=== PATIENT | female | born 1995 | race Hispanic/Latino ===

== ENCOUNTER 2019-06-15 01:13 | Day surgery (SDC) | payer OTHER ==
[2019-06-15 01:47] VITALS: BMI 27.0
[2019-06-15 02:30] LABS: Bacteria/HPF None Seen HPF (None Seen); Bilirubin Negative (Negative); Blood, Urine 1+ (Negative); Clarity Clear (Clear); Glucose, Urine (Dipstick) Normal (Negative); Leukocyte 25 Leu/uL (Negative); Nitrite Negative (Negative); Protein, Urine (Dipstick) Negative (Neg-Trace); RBC/HPF 0-3 HPF (0-3); Squamous Epithelial 0-3 HPF (0-3); Urobilinogen Normal mg/dL (Less than 2); WBC/HPF 0-3 HPF (0-3)
[2019-06-15] MEDS ORDERED: Ondansetron ODT 8 MG TAB SL PRN (03:27)
[2019-06-15] MEDS ORDERED: Lactated Ringer's 1,000 ML IV SCH (03:30)
[2019-06-15] MEDS ORDERED: Morphine 4 MG/ML VIAL SLOW IVP SCH (03:30)
[2019-06-15] MEDS: Morphine 4 MG/ML VIAL SLOW IVP SCH ×2 (04:05→05:02)
[2019-06-15] MEDS ORDERED: Morphine 4 MG/ML VIAL ONE (05:01)
[2019-06-15] MEDS ORDERED: FLU VACC QS2019-20(6MOS UP)/PF 60 MCG/0.5 ML SYRINGE IM ONE (09:00)
[2019-06-16] MEDS ORDERED: hydrALAZINE 20 MG/ML VIAL SLOW IVP PRN (09:48)
--- NOTE | 2019-06-16 10:12 | PRG ---
DATE OF SERVICE: 06/15/2019 PRIMARY OB: Lisa Zambrano MD CHIEF COMPLAINT: Abdominal pain. HISTORY OF PRESENT ILLNESS: The patient is a 23-year-old G1, P0, female with an intrauterine at 38 weeks and 6 days, who presents to Labor and Delivery with a several day history of back pain and abdominal contractions. The patient also reports that she has burning at the conclusion of urination for a couple of days. The patient denies leakage of fluid. Denies vaginal bleeding. Denies any recent illnesses, fever, fall, headache, chest pain, or shortness of breath. The patient has had some nausea. Denies vomiting. Reports constipation with her last bowel movement several days ago. Denies any new rashes, hip problems, knee problems, muscle weakness. She does report lower back pain. This has been present for a while now. PAST MEDICAL HISTORY: Negative. PAST SURGICAL HISTORY: Negative. ALLERGIES: NO KNOWN DRUG ALLERGIES. MEDICATIONS: vitamins. SOCIAL HISTORY: Denies drug, alcohol, or tobacco use. OB LABS: One-hour glucose 72. Hepatitis B surface antigen is nonreactive. HIV is nonreactive in the first trimester. Rubella is immune. GBS positive. RPR negative. Type and screen, blood type is a positive, antibody screen is negative. REVIEW OF SYSTEMS: Per HPI. PHYSICAL EXAMINATION: VITAL SIGNS: Blood pressure is 134/75, heart rate of 71, respiratory rate of 16, saturating 99% on room air, and temperature 98.1. GENERAL: She appears to be in no acute distress. She is alert and oriented, cooperative and pleasant to interact with. HEENT: Head is normocephalic, atraumatic. LUNGS: Clear to auscultation bilaterally. HEART: Has a regular rate and rhythm. ABDOMEN: Gravid. She has some tenderness with deviation of the uterus to the left and right. She has some SI joint tenderness. Cervix is 1, 80, and -1 station per nursing staff. DIAGNOSTIC DATA: heart tracing shows a baseline in the 120s with moderate long-term variability, positive 15 x 15 accelerations, no decelerations. Labs; urinalysis; ketones are negative, 1+ blood, 0 to 3 red blood cells, 25 leukocyte esterase, no bacteria, no squamous cells, no nitrite. ASSESSMENT AND PLAN: The patient is a 23-year-old female, having more musculoskeletal pains of and likely some uterine contractions, but no evidence of labor. The patient has been given 6 mg of morphine IV and a liter of fluid in an attempt to give her some comfort. The patient is being discharged home, more comfortable when she came and has been instructed to follow up with her primary OB. Fetus is category I tracing and reactive NST. The patient has been given term labor precautions. Job ID: [id number]
== END 2019-06-15 05:50 | disposition home or self-care (01) ==
LOC: L&D/OP 01:13
PROVIDERS: ATTEND Family Medicine
DX: O47.1 False labor at or after 37 completed weeks of gestation (principal); Z3A.38 38 weeks gestation of pregnancy
CPT/HCPCS: 81001; 96360; 96361; 96375; 99284; J2270

== ENCOUNTER 2019-06-16 07:29 | Inpatient (IN) | payer OTHER ==
[2019-06-16 08:03] VITALS: BMI 27.0
[2019-06-16] MEDS ORDERED: hydrALAZINE 20 MG/ML VIAL SLOW IVP PRN ×2 (08:51→14:16)
[2019-06-16] MEDS ORDERED: Glycerin Adult Supp. (12 ct jar) PR SCH (09:00)
[2019-06-16] MEDS ORDERED: Bupivacaine/Epinephrine 0.25% 30 ML VIAL ONE (09:30)
[2019-06-16] MEDS ORDERED: Ondansetron ODT 8 MG TAB SL PRN (10:18)
[2019-06-16] MEDS ORDERED: Morphine 4 MG/ML VIAL IM SCH (10:30)
[2019-06-16] MEDS ORDERED: Fleet Enema 133 ML BOT PR SCH (10:30)
[2019-06-16] MEDS ORDERED: Mineral Oil ENEMA PR SCH (11:30)
--- NOTE | 2019-06-16 14:12 | PRG ---
DATE OF SERVICE: 06/16/2019 PRIMARY OB: Dr. Lisa Zambrano. CHIEF COMPLAINT: Abdominal pain. HISTORY OF PRESENT ILLNESS: The patient is a 23-year-old primip, presenting to Labor and Delivery at 39 weeks' gestation with continued abdominal pain and back pain. The patient reports that she has been experiencing this back and pubic bone pain for several days now. She was seen yesterday in the office with Dr. Zambrano, who said she was 2 cm dilated at that time. The patient was discharged home with Keflex for urinary tract infection and Tylenol No. 3 for pain control. She has re-presented today with persistent pain that Tylenol No. 3 has not been helping with. She reports that she is having abdominal pains and uterine contractions of unknown duration or frequency. The patient denies vaginal bleeding or leakage of fluid. She denies any fever, fall, headache, chest pain, or shortness of breath. She has had nausea. Denies vomiting. Reports constipation and has not had a bowel movement for the last 5 days. Denies any new rashes, hip problems, knee problems, or muscle weakness. Denies vaginal bleeding or leakage of fluid. Denies urinary urgency or frequency. PAST MEDICAL HISTORY: Negative. PAST SURGICAL HISTORY: She has had ear tubes placed as a child. ALLERGIES: NO KNOWN DRUG ALLERGIES. MEDICATIONS: 1. vitamins. 2. Keflex. 3. Tylenol No. 3. SOCIAL HISTORY: Denies drug, alcohol, or tobacco use. OB LABS: Blood type is A positive. Antibody screen is negative. She is rubella immune. GBS positive. RPR negative in the first trimester. Hepatitis B surface antigen negative in the first trimester. HIV negative in the first trimester. One-hour Glucola 72. GC and chlamydia are negative. REVIEW OF SYSTEMS: Per HPI. PHYSICAL EXAMINATION: VITAL SIGNS: Blood pressure is 122/74, heart rate of 88, respiratory rate of 18, and temperature 98.3. GENERAL: She appears to be in some distress. She is alert, oriented, cooperative, and pleasant to interact with. HEAD: Normocephalic and atraumatic. LUNGS: Clear to auscultation bilaterally. HEART: Has regular rate and rhythm. ABDOMEN: Gravid and soft. Most of her pain is coming from her left-sided SI joint pain and her back. She does feel hardness in her belly when she does have a contraction, but it is not causing most of her pain. CERVICAL: 2, 75, and -2 station. heart tracing shows fetus with a baseline in the 130s with moderate long-term variability, positive 15 x 15 accelerations, no decelerations. Tocometer showing irritability with contractions about every 10 minutes. ASSESSMENT AND PLAN: The patient is a 23-year-old female with an intrauterine at 39 weeks and 0 days, having significant musculoskeletal pains of and possibly late in labor as she has had some cervical change since her last visit here a little over 24 hours ago. The patient has also been constipated without a bowel movement last 5 days. We will be giving her a suppository and enema if necessary to help assist with that to see if that will give her any relief. The patient is also getting IV hydration and has been offered pain medication when she would like it. Fetus has a category I tracing and reactive NST. It will be re-evaluated in a couple of hours to assess for active labor and we will be notifying Dr. Zabmrano at that time with our findings. Job ID: [id number]
[2019-06-16] MEDS ORDERED: Ondansetron PF 4 MG/2 ML Vial IVP PRN ×2 (14:16→22:30)
[2019-06-16] MEDS ORDERED: Lidocaine 1% (PF) 30 ML VIAL SC PRN (14:16)
[2019-06-16] MEDS ORDERED: Ibuprofen 800 MG TAB PO PRN (14:16)
[2019-06-16] MEDS ORDERED: Butorphanol Tartrate 1 MG/ML VIAL SLOW IVP PRN (14:16)
[2019-06-16] MEDS ORDERED: NS w/ Oxytocin 10 units 500 ML IV SCH (14:30)
[2019-06-16] MEDS ORDERED: Lactated Ringer's 1,000 ML IV SCH (14:30)
[2019-06-16] MEDS ORDERED: Penicillin G Potassium 5 MILL.UNITS in Sodium Chloride 0.9% 100 ML IVPB SCH (14:45)
[2019-06-16 15:48] LABS: Hemoglobin 12.4 g/dL (12.0-16.0); Mean Corpuscular HGB CONC 34.2 g/dL (32.0-36.0); Mean Corpuscular Hemoglobin 32.2 pg (27.0-31.0); Mean Corpuscular Volume 94.2 fL (78.0-98.0); Mean Platelet Volume 7.1 fL (7.4-10.4); Platelet Count 265 thou/uL (130-400); RBC Distribution Width 12.4 % (11.5-14.5); Red Blood Cell (RBC) Count 3.85 mill/uL (4.20-5.40); White Blood Cell (WBC) Count 11.8 thou/uL (4.8-10.8)
[2019-06-16 16:39] LABS: HBSAg Index 0.15 S/CO (0-0.99); Hep B Surf Ag Non-Reactive S/CO (NonReactive)
[2019-06-16 16:43] LABS: Syphilis Antibody Nonreactive (Nonreactive); Syphilis Antibody Index 0.06 S/CO (<1.00 Non-Reactive)
[2019-06-16] MEDS: Penicillin G 2.5 MILL.units 2.5 MILL.UNITS in Premix Bag 1 BAG IVPB SCH ×2 (19:21→23:55)
[2019-06-16] MEDS ORDERED: Fentanyl 4 mcg/Bup 0.1% Cadd 100 ML ONE (21:40)
[2019-06-16] MEDS ORDERED: Fentanyl 4 mcg/Bupivacaine 0.1% Cassette 100 ML EPIDURAL SCH (22:30)
[2019-06-16] MEDS ORDERED: Lactated Ringer's 500 ML IV PRN (22:30)
[2019-06-16] MEDS ORDERED: Acetaminophen 325 MG TAB PO PRN (22:30)
[2019-06-16] MEDS ORDERED: Promethazine HCl 25 MG/ML VIAL IM PRN (22:30)
[2019-06-16] MEDS ORDERED: Communication Order-Pharmacy FS SCH (22:30)
[2019-06-16] MEDS ORDERED: ePHEDrine/0.9% NaCl/PF SYRINGE 50 mg/10 ml SLOW IVP PRN (22:30)
[2019-06-16] MEDS ORDERED: Naloxone HCl 0.4 mg/ml Vial IVP PRN ×2 (22:30)
[2019-06-16] MEDS ORDERED: diphenhydrAMINE 50 MG/ML VIAL IVP PRN (22:30)
[2019-06-16] MEDS: Lactated Ringer's 1,000 ML IV SCH (22:39)
[2019-06-17] MEDS: NS / Oxytocin 40 units/1000ml 1,000 ML IV PRN ×2 (03:10→04:59)
--- NOTE | 2019-06-17 03:28 | PDOC.OPDEL ---
OB Operative/Delivery Note Delivery Dr/Surgeon: Juan Manuel Pre-Delivery Diagnosis: elective induction (39 weeks, severe back pain, requested IOL, favorable cervix) Procedure/Post Delivery Dx: spontaneous vaginal delivery (Complete and pushing, head OA, no nuchal cord, shoulders and body easily followed, mouth and nares bulb suctioned, baby placed on mother's abdomen) Weeks gestation: 39 Anesthesia: epidural - Findings A Sex: male - 1 min: 9 - 5 min: 9 - Additional Findings/Plan Placenta delivered: spontaneous Repaired Obstetrical Laceration: 1st degree (Repaired with 2.0 vicryl in standard running fashion, a lot of edema of the vaginal tissues, ice packs applied after delivery) Estimated blood loss: 200 ml Post delivery plan: routine recovery
[2019-06-17] MEDS ORDERED: Preparation H Ointment 28 GM TUBE PR PRN (05:05)
[2019-06-17] MEDS ORDERED: hydrALAZINE 20 MG/ML VIAL SLOW IVP PRN (05:05)
[2019-06-17] MEDS ORDERED: NS / Oxytocin 40 units/1000ml 1,000 ML IV SCH (05:05)
[2019-06-17] MEDS ORDERED: Milk Of Magnesia 30 ML UDCUP PO PRN (05:05)
[2019-06-17] MEDS ORDERED: Lanolin Ointment 7 GM TUBE TOP PRN (05:05)
[2019-06-17] MEDS ORDERED: Bisacodyl 10 MG SUPP PR PRN (05:05)
[2019-06-17] MEDS: Penicillin G 2.5 MILL.units 2.5 MILL.UNITS in Premix Bag 1 BAG IVPB SCH (06:55)
[2019-06-17] MEDS: Lactated Ringer's 1,000 ML IV SCH (06:55)
[2019-06-17] MEDS: Docusate Calcium (SURFAK) 240 MG CAP PO SCH ×2 (08:35→21:50)
[2019-06-17] MEDS: Ibuprofen 800 MG TAB PO SCH ×3 (08:35→21:50)
[2019-06-17] MEDS: Ferrous Sulfate 325 MG TAB PO SCH ×2 (08:36→16:59)
[2019-06-18] MEDS: Ibuprofen 800 MG TAB PO SCH ×3 (05:58→21:19)
[2019-06-18] MEDS ORDERED: Benzocaine-Menthol 82.5 ML CAN TOP PRN (06:12)
[2019-06-18] MEDS: Ferrous Sulfate 325 MG TAB PO SCH ×2 (08:23→16:17)
[2019-06-18] MEDS: Docusate Calcium (SURFAK) 240 MG CAP PO SCH ×2 (08:50→21:17)
[2019-06-18] MEDS: HYDROcodone/Acetaminophen 5/325 mg Tablet PO PRN ×2 (08:56→16:17)
--- NOTE | 2019-06-18 13:46 | PDOC.PP ---
Post Progress Note Post Day #: 1 Subjective: Doing well. Working on using a shield. Some pain in the perineum but getting better. PO intake tolerated: yes Flatus: yes Ambulation: yes Vital Signs (12 hours) Temp Pulse Resp BP Pulse Ox 06/18/19 10:20 98 06/18/19 08:09 97.7 F 59 L 20 96/54 L 98 06/18/19 06:01 97.7 F 65 20 115/64 Weight Weight 143 lb - Physical Examination General: NAD Cardiovascular: no m/r/g, RRR Respiratory: clear to auscultation bilaterally Abdominal: + bowel sounds, no distention Extremities: negative homans (B) Neurological: no gross focal deficits Psychiatric: A&Ox3 Result Diagrams: 06/16/19 15:40 Additional Labs: Post Labs Blood Type A POSITIVE 06/16/19 15:40 Hep Bs Antigen Non-Reactive S/CO (NonReactive) 06/16/19 15:40 (1) Vaginal delivery Code(s): O80 - ENCOUNTER FOR FULL-TERM UNCOMPLICATED DELIVERY Status: Acute - Assessment/Plan Routine PP care Work on Home tomorrow 06/19 Rodney Maldonado will cover this weekend.
[2019-06-19] MEDS: Ibuprofen 800 MG TAB PO SCH (06:01)
[2019-06-19 08:00] VITALS: BP 104/55; TEMP 98.5
[2019-06-19] MEDS: Docusate Calcium (SURFAK) 240 MG CAP PO SCH (09:03)
[2019-06-19] MEDS: Ferrous Sulfate 325 MG TAB PO SCH (09:04)
[2019-06-19] MEDS ORDERED: Adacel (T-DAP) 0.5 ML SYRINGE IM ONE (13:00)
== END 2019-06-19 13:25 | disposition home or self-care (01) | DRG 807 ==
LOC: L&D/OP 07:29 → L&D 15:44 → 3SW 06-17 06:32
PROVIDERS: ADMIT Family Medicine; ATTEND Family Medicine
PROC: 10E0XZZ Delivery of Products of Conception, External Approach (ICD-10-PCS; principal; 2019-06-18)
PROC: 10907ZC Drainage of Amniotic Fluid, Therapeutic from Products of Conception, Via Natural or Artificial Opening (ICD-10-PCS; 2019-06-18)
PROC: 0HQ9XZZ Repair Perineum Skin, External Approach (ICD-10-PCS; 2019-06-18)
PROC: 3E033VJ Introduction of Other Hormone into Peripheral Vein, Percutaneous Approach (ICD-10-PCS; 2019-06-18)
DX: O76 Abnormality in fetal heart rate and rhythm complicating labor and delivery (principal); Z37.0 Single live birth; Z3A.39 39 weeks gestation of pregnancy; K59.00 Constipation, unspecified; O99.613 Diseases of the digestive system complicating pregnancy, third trimester; O70.0 First degree perineal laceration during delivery
CPT/HCPCS: 36415; 51702; 85027; 86780; 86850; 86900; 86901; 87340; 90715; 99285; J0595; J2270; J2540; J2590; J3490